=== PATIENT | female | born 1960 | race African-American/Black ===

== ENCOUNTER 2024-08-12 08:46 | Emergency (ER) | payer MEDICAID ==
[~2024-08-12] VITALS: Ht 167.6 cm; Wt 75.0 kg
[2024-08-12 08:49] VITALS: O2SAT 97; O2SAT 98
[2024-08-12] MEDS ORDERED: ACETAMINOPHEN 500MG TABLET PO ONE (09:15)
[2024-08-12] MEDS ORDERED: KETOROLAC 30MG/ML VIAL IM ONE (09:15)
[2024-08-12 09:39] LABS: CLARITY URINE CLEAR (CLEAR); COLOR URINE YELLOW (YELLOW); GLUCOSE URINE NEGATIVE (NEGATIVE); KETONES URINE NEGATIVE (NEGATIVE); LEUKOCYTE ESTERASE URINE NEGATIVE (NEGATIVE); NITRITE URINE NEGATIVE (NEGATIVE); OCCULT BLOOD URINE NEGATIVE (NEGATIVE); PH URINE 8.5 (4.5-8.0); PROTEIN URINE NEGATIVE (NEGATIVE); SPECIFIC GRAVITY URINE 1.016 (1.005-1.030); UROBILINOGEN URINE 0.2 E.U./dL (0.2-1.0)
[2024-08-12] MEDS ORDERED: IBUP-2029 MT (10:51)
[2024-08-12] MEDS ORDERED: METH-653 MT (10:51)
[2024-08-12 11:17] VITALS: BP 144/84; PULSE 87; RESP 18; TEMP 98.5
[2024-08-12] MEDS: KETOROLAC 30MG/ML VIAL IM NR (11:17)
[2024-08-12] MEDS: ACETAMINOPHEN 500MG TABLET PO NR (11:17)
== END 2024-08-12 11:25 | disposition home or self-care (01) ==
LOC: ER 08:46
DX: M54.50 Low back pain, unspecified (principal); Z98.890 Other specified postprocedural states
CPT/HCPCS: 99284; 81003; 72220; 96372; J1885